=== PATIENT | female | born 1970 | race Caucasian/White ===

== ENCOUNTER 2025-03-17 08:52 | Outpatient (AMB) | payer OTHER, SELFPAY ==
--- NOTE | 2025-03-17 08:55 | HO.SPINEOV ---
Vital Signs 03/17/25 09:01 Height 5 ft 8 in Weight 178 lb BMI 27.1 Intake Visit Reasons: neck pain Intake Note: Ms. Dorsey is here today c/o neck pain. Cookie Breaker Required: No Allergies VENICE Inhibitors Allergy (Severe, Verified 03/17/25 09:00) Anaphylaxis hydrocodone Allergy (Severe, Verified 03/17/25 09:00) Anaphylaxis oxycodone Allergy (Severe, Verified 03/17/25 09:00) Anaphylaxis Sulfa (Sulfonamide Antibiotics) Allergy (Severe, Verified 03/17/25 09:00) Anaphylaxis Physical Exam Vital Signs: BMI result Body Mass Index 27.1 Assessment & Plan Assessment & Plan (1) Degenerative disc disease, cervical: Code(s): M50.30 - Other cervical disc degeneration, unspecified cervical region Category: Medical Plan Dear colleague Thank you for referring Kasandra Dorsey to the office today with a chief complaint of neck pain. HPI: Patient states that in July she started to notice posterior neck pain that radiates to the occiput and can radiate upwards to the temporal areas. She denies radiation down her arms. She does have intermittent tingling. She suffered her radial nerve on the left and has residual tingling from this. Last January she had a breast reduction which led to left-sided pain in the mandibular area which since then has improved. PMH: Lumbar fusion, right ankle reconstruction, cholecystectomy, hysterectomy, bilateral breast reduction Medications: Rosuvastatin Allergies: Hydrocodone, oxycodone, sulfa drugs Social history: Nonsmoker Physical Exam: Pleasant female accompanied by a service dog. She is not in agony. She is able to move her neck in all directions without pain or restrictions. No deficits for the upper extremities. Good network operations specialist. Radiological Studies: MRI done at [facility] shows multilevel degenerative disc disease with a osteophyte complex compressing the left C6 nerve root. Impression/Plan: This patient is suffering from posterior neck pain without radiculopathy. The MRI shows degenerative changes. I told the patient that it may well be that the pain is originating from her cervical spine but that there is no surgical lesion that I can treat. She should return to my office if she develops radicular symptoms. Thank you for allowing me to participate in your patients care. Do not hesitate to call me with any questions or concerns total time spent was 30 minutes in counseling ,coordination of plan, personal review of imaging, surgical decision making and subsequent plan Shola Hale MD, PhD Spine Fellowship Trained Neurosurgeon Director, [facility] Coding Level of Care Code New Pt Level 3 (48542) Diagnoses Degenerative disc disease, cervical M50.30
[2025-03-17 09:01] VITALS: BMI 27.1
--- OUTSIDE RECORDS SUMMARY | 2025-03-17 09:08 | XMS_ITS | Referral Summary ---
Author Organization [facility] Address [address] [id number] Care Team Providers Care Tool Setter Apprentice Name Role Phone Michael Castillo Primary Care Provider [phone] Allergies Active Allergy Reactions Criticality Noted Date Comments Acetazolamide Anaphylaxis High 09/05/2013 Cyclobenzaprine Drowsiness 07/06/2002 Hydrocodone Anaphylaxis High 03/29/2018 Hydrocodone-Acetaminophen Anaphylaxis High 2 Lansoprazole Anaphylaxis,Rash High 09/26/2010 Latex Edema 04/19/2010 Leflunomide Bruising 07/18/2014 Methadone Nausea 06/26/2003 Naproxen Unknown 06/23/2022 Nsaids (Non-Steroidal Anti-Inflammatory Drug) Unknown 06/23/2022 Omeprazole Anaphylaxis High 09/26/2010 Oxycodone Anaphylaxis High 06/23/2022 Oxycodone-Acetaminophen Anaphylaxis High 04/19/2010 Sodium Citrate-Citric Acid Nausea 9 Medications calcium carbonate-vitam in D3 600 mg-5 mcg (200 unit) per tablet Calcium 600 + D TABS Refills: 0 Active Active carboxymethylce llulose (REFRESH PLUS) 0.5% ophthalmic solution INSTILL 1 DROP INTO EACH EYE FOUR TIMES A DAY 2 Active cetirizine (ZyrTEC) 10 mg capsule capsule ZyrTEC Allergy 10 MG Oral Capsule Refills: 0 Active Active cholecalciferol (VITAMIN D3) 2,000 unit capsule Vitamin D3 2000 UNIT Oral Capsule Refills: 0 Active Active cyanocobalamin 1,000 mcg tablet [facility] Vitamin B-12 1000 MCG Oral Tablet Refills: 0 Active Active LORazepam (ATIVAN) 0.5 mg tablet LORazepam 0.5 MG Oral Tablet Refills: 0 Active Active rosuvastatin (CRESTOR) 10 mg tablet TAKE ONE TABLET BY MOUTH EVERY EVENING FOR CHOLESTEROL 2 Active sertraline (ZOLOFT) 100 mg tablet 200 mg. 2 Active tiZANidine (ZANAFLEX) 2 mg tablet Zanaflex 2 MG TABS Refills: 0 Active Active etanercept (ENBREL SUBCUTANEO) Inject under the skin. Active Active Problems Problem Noted Date Diagnosed Date Joint Pain, Localized In The Knee 01/25/2013 Social History Tobacco Use Types Packs/Day Years Used Date Smoking Tobacco: Never Smokeless Tobacco: Never Tobacco Cessation:Counseling Given: Not Answered Comments:: Alcohol Use Standard Drinks/Week Comments Yes 0 (1 standard drink = 0.6 oz pur e alcohol) Comments Unknown Sex and Gender Information Value Date Recorded Sex Assigned at Not on file Legal Sex Female 6:32 AM EDT Gender Identity Not on file Sexual Orientation Not on file Last Filed Vital Signs Vital Sign Reading Time Taken Comments Blood Pressure - - Pulse - - Temperature - - Respiratory Rate - - Oxygen Saturation - - Inhaled Oxygen Concentration - - Weight 105.2 kg (232 lb) 06/23/2022 7:56 AM EDT Height 172.7 cm (5' 8 ) 06/23/2022 7:56 AM EDT Body Mass Index 35.28 06/23/2022 7:56 AM EDT Plan of Treatment Not on file Insurance [employer] Care Teams Tool Setter Apprentice Relationship Specialty Start Date End Date Michael Castillo [address] [place] [id number] [facility] - General 03/12/17
--- OUTSIDE RECORDS SUMMARY | 2025-03-17 09:08 | XMS_ITS | Clinical Summary ---
Author Organization [facility] Address [address] [place] [phone] Phone Care Team Providers Care Gasoline Tester Name Role Phone Unavailable Primary Care Provider Unavailabl e Social History Tobacco Use Types Packs/Day Years Used Date Smoking Tobacco: Never Assessed Education Answer Date Recorded Are you interested in more education? Not on delores e 06/20/2024 Are you concerned about learning? Not on file 06/20/2024 No 06/20/2024 No 06/20/2024 Digital Access Answer Date Recorded No 06/20/2024 No 06/20/2024 Reliable internet access at home? Not on file 06/20/2024 Device with a working camera? Not on file Comments Unknown Sex and Gender Information Value Date Recorded Sex Assigned at Not on file Legal Sex Female 6:20 PM EST Gender Identity Not on file Sexual Orientation Not on file Plan of Treatment Not on file Medical Devices Not on file Additional Source Comments The information contained in this document represents components of the legal health record. It is not the complete legal health record.[facility]
== END 2025-03-17 09:42 | disposition home or self-care (01) ==
LOC: HO.HNS 08:53
PROVIDERS: PCP Family Medicine; Referring Provider Family Medicine; Visit Provider Neurological Surgery
DX: M50.30 Other cervical disc degeneration, unspecified cervical region (principal)
CPT/HCPCS: 99203

== ENCOUNTER → 2025-03-17 08:52 | Outpatient (BNVA) | payer OTHER, SELFPAY | PROVIDERS: PCP Family Medicine; Referring Provider Family Medicine; Visit Provider Neurological Surgery | DX: M50.30 Other cervical disc degeneration, unspecified cervical region (principal) | CPT/HCPCS: 99202 ==